=== PATIENT | male | born 1985 | race Caucasian/White ===

== ENCOUNTER 2017-02-12 04:31 | Emergency (ER) | payer SELFPAY ==
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
== END 2017-02-12 05:40 | disposition disaster alternative care site (69) ==
LOC: GACC 04:31
DX: S41.012A Laceration without foreign body of left shoulder, initial encounter (principal); F17.210 Nicotine dependence, cigarettes, uncomplicated; W26.0XXA Contact with knife, initial encounter
CPT/HCPCS: Q9967